=== PATIENT | male | born 1995 | race Two or more races ===

== ENCOUNTER 2018-01-20 14:26 | Emergency (ER) | payer MEDICAID ==
[~2018-01-20] VITALS: Ht 167.6 cm; Wt 77.1 kg
[2018-01-20] MEDS ORDERED: SODIUM CHLORIDE 0.9% 1,000 ML IV ONE (14:45)
[2018-01-20] MEDS ORDERED: TETANUS-DIPTH-ACEL PERTUSSIS 0.5ML SYRG IM ONE (15:45)
[2018-01-20 16:02] LABS: Basophils # (auto) 0 uL; Basophils % (auto) 0.3 % (0.0-2.0); Eosinophils # (auto) 0.2 uL; Eosinophils % (auto) 1.4 % (0.0-7.0); Hematocrit 44.5 % (41.0-53.0); Hemoglobin 15.3 g/dL (13.5-17.5); Lymphocytes # (auto) 1.6 uL; Lymphocytes % (auto) 11.9 % (10.0-50.0); Mean Corpuscular Hemoglobin 32.2 pg (28.0-32.0); Mean Corpuscular Hgb Conc. 34.4 g/dL (32.0-36.0); Mean Corpuscular Volume 93.6 fL (80.0-100.0); Monocytes # (auto) 0.7 uL; Monocytes % (auto) 4.8 % (0.0-12.0); Neutrophils # (auto) 11.2 uL; Neutrophils % (auto) 81.6 % (37.0-80.0); Nucleated Red Blood Cells % 0.1 %; Platelet Count (auto) 347 10^3/uL (140-450); Red Blood Cells 4.75 10^6/uL (4.5-5.90); Red Cell Distribution Width 13.6 % (11.8-14.3); White Blood Cell 13.8 10^3/uL (4.4-10.8)
[2018-01-20] MEDS ORDERED: LIDOCAINE 1% HCL (LOCAL ANESTH.) INJ 20ML MDV ONE (16:07)
[2018-01-20] MEDS ORDERED: LIDOCAINE 1% (LOCAL ANESTH.) PF 5ml SDV IJ ONE (16:15)
[2018-01-20 16:30] LABS: Albumin 3.9 g/dL (3.4-5.0); BUN/Creatinine Ratio 20.3; Bilirubin, Total 0.4 mg/dL (0.2-1.0); Calcium 8.8 mg/dL (8.5-10.1); Potassium 4.2 mmol/L (3.5-5.1); Total Protein 7.4 g/dL (6.4-8.2)
[2018-01-20] MEDS ORDERED: cefTRIAXone 1GM/10ml IVPUSH 10 ML IV ONE (16:30)
[2018-01-20] MEDS ORDERED: NEOMYCIN-BACITRACIN-POLYM UNITDOSE PKG TOP OINT TOP ONE (16:30)
[2018-01-20 18:26] LABS: Urine Bacteria NONE SEEN /hpf (None Seen); Urine Blood Negative /uL (Negative); Urine Mucus FEW (None Seen); Urine Specific Gravity 1.027 (1.001-1.035); Urine WBC 2 /hpf (0 - 3)
[2018-01-20 18:44] LABS: Alcohol, Urine < 3.0 mg/dL (0-5); Amphetamine Screen, Urine POSITIVE (NEGATIVE); Barbiturate Scree,Urine NEGATIVE (NEGATIVE); Benzodiazephine Screen, Urine NEGATIVE (NEGATIVE); Cannabinoid Screen, Urine POSITIVE (NEGATIVE); Cocaine Screen, Urine NEGATIVE (NEGATIVE); Opiate Scree,Urine NEGATIVE (NEGATIVE); Phencyclidine Screen, Urine NEGATIVE (NEGATIVE)
[2018-01-20 18:45] VITALS: BP 125/65
== END 2018-01-20 18:51 | disposition home or self-care (01) ==
LOC: EDBD 14:26 → ER 14:29
DX: S01.21XA Laceration without foreign body of nose, initial encounter (principal); F17.210 Nicotine dependence, cigarettes, uncomplicated; F12.10 Cannabis abuse, uncomplicated; F15.10 Other stimulant abuse, uncomplicated; W17.89XA Other fall from one level to another, initial encounter; Y93.89 Activity, other specified; Y99.8 Other external cause status; Y92.89 Other specified places as the place of occurrence of the external cause
CPT/HCPCS: 12013; 36415; 70450; 70486; 80053; 80307; 81001; 85025; 90471; 90715; 96374; 99285; J2001; J7030

== ENCOUNTER 2018-02-01 20:11 | Emergency (ER) | payer MEDICAID ==
[~2018-02-01] VITALS: Ht 167.6 cm; Wt 81.6 kg
[2018-02-01 20:30] VITALS: BP 150/86
[2018-02-01] MEDS ORDERED: LIDOCAINE 1% HCL (LOCAL ANESTH.) INJ 20ML MDV ONE (22:25)
== END 2018-02-01 21:57 | disposition left against medical advice (07) ==
LOC: ER 20:11
DX: S01.81XD Laceration without foreign body of other part of head, subsequent encounter (principal); Z53.21 Procedure and treatment not carried out due to patient leaving prior to being seen by health care provider; X58.XXXD Exposure to other specified factors, subsequent encounter
CPT/HCPCS: J2001

== ENCOUNTER 2019-05-27 03:25 | Emergency (ER) | payer MEDICAID ==
[~2019-05-27] VITALS: Ht 167.6 cm; Wt 104.3 kg
[2019-05-27 03:37] VITALS: BP 156/91
== END 2019-05-27 05:58 | disposition home or self-care (01) ==
LOC: ER 03:29
DX: S01.112A Laceration without foreign body of left eyelid and periocular area, initial encounter (principal); F17.210 Nicotine dependence, cigarettes, uncomplicated; F12.90 Cannabis use, unspecified, uncomplicated; F15.90 Other stimulant use, unspecified, uncomplicated; W01.198A Fall on same level from slipping, tripping and stumbling with subsequent striking against other object, initial encounter; Y93.89 Activity, other specified; Y99.8 Other external cause status; Y92.89 Other specified places as the place of occurrence of the external cause
CPT/HCPCS: 12011; 70450

== ENCOUNTER 2019-08-05 00:49 | Emergency (ER) | payer MEDICAID ==
[~2019-08-05] VITALS: Ht 167.6 cm; Wt 99.8 kg
[2019-08-05 01:36] VITALS: BP 135/89
== END 2019-08-05 02:08 ==
LOC: ER 00:50
DX: F15.10 Other stimulant abuse, uncomplicated (principal); F12.10 Cannabis abuse, uncomplicated; F17.210 Nicotine dependence, cigarettes, uncomplicated

== ENCOUNTER 2021-09-22 23:13 | Emergency (ER) | payer MEDICAID ==
[~2021-09-22] VITALS: Ht 167.6 cm; Wt 81.6 kg
[2021-09-23 07:26] VITALS: BP 167/97
[2021-09-23] MEDS ORDERED: CEPH500C PO (07:32)
== END 2021-09-23 08:02 | disposition home or self-care (01) ==
LOC: ER 23:13
DX: S61.232A Puncture wound without foreign body of right middle finger without damage to nail, initial encounter (principal); F17.210 Nicotine dependence, cigarettes, uncomplicated; F12.10 Cannabis abuse, uncomplicated; F15.10 Other stimulant abuse, uncomplicated; X58.XXXA Exposure to other specified factors, initial encounter; Y93.51 Activity, roller skating (inline) and skateboarding; Y92.89 Other specified places as the place of occurrence of the external cause; Y99.8 Other external cause status

== ENCOUNTER 2021-09-24 12:13 | Emergency (ER) | payer MEDICAID ==
[~2021-09-24] VITALS: Ht 167.6 cm; Wt 81.6 kg
[~2021-09-24 12:13] MED LIST: CEPH500C PO
[2021-09-24 12:55] VITALS: BP 129/70
== END 2021-09-24 13:33 | disposition home or self-care (01) ==
LOC: ER 12:13
DX: S61.031A Puncture wound without foreign body of right thumb without damage to nail, initial encounter (principal); S61.032A Puncture wound without foreign body of left thumb without damage to nail, initial encounter; F17.210 Nicotine dependence, cigarettes, uncomplicated; Z79.899 Other long term (current) drug therapy; X58.XXXA Exposure to other specified factors, initial encounter; Y93.89 Activity, other specified; Y92.89 Other specified places as the place of occurrence of the external cause; Y99.8 Other external cause status

== ENCOUNTER 2021-09-25 14:06 | Emergency (ER) | payer MEDICAID ==
[~2021-09-25] VITALS: Ht 167.6 cm; Wt 81.6 kg
[2021-09-25 14:24] VITALS: BP 127/88
[2021-09-25] MEDS ORDERED: CEPHALEXIN 250 MG CAP PO ONE (15:00)
== END 2021-09-25 15:20 | disposition home or self-care (01) ==
LOC: ER 14:06
DX: S61.031D Puncture wound without foreign body of right thumb without damage to nail, subsequent encounter (principal); F17.210 Nicotine dependence, cigarettes, uncomplicated; F12.10 Cannabis abuse, uncomplicated; F15.10 Other stimulant abuse, uncomplicated; Z59.00 Homelessness unspecified; X58.XXXD Exposure to other specified factors, subsequent encounter

== ENCOUNTER 2021-09-26 01:42 | Emergency (ER) | payer MEDICAID ==
[~2021-09-26] VITALS: Ht 167.6 cm; Wt 75.7 kg
== END 2021-09-26 03:27 | disposition home or self-care (01) ==
LOC: ER 01:42
DX: F54 Psychological and behavioral factors associated with disorders or diseases classified elsewhere (principal); R21 Rash and other nonspecific skin eruption; F17.210 Nicotine dependence, cigarettes, uncomplicated; Z59.00 Homelessness unspecified; Z79.899 Other long term (current) drug therapy

== ENCOUNTER 2021-09-29 21:11 | Emergency (ER) | payer MEDICAID ==
[~2021-09-29] VITALS: Ht 167.6 cm; Wt 81.6 kg
[2021-09-30 06:55] VITALS: BP 126/88
[2021-09-30] MEDS ORDERED: BACIOIN OP (07:17)
== END 2021-09-30 07:09 | disposition home or self-care (01) ==
LOC: ER 21:11
DX: L98.8 Other specified disorders of the skin and subcutaneous tissue (principal); F17.210 Nicotine dependence, cigarettes, uncomplicated; F12.10 Cannabis abuse, uncomplicated; F15.10 Other stimulant abuse, uncomplicated; Z59.00 Homelessness unspecified
CPT/HCPCS: 74176

== ENCOUNTER 2021-10-02 03:27 | Emergency (ER) | payer MEDICAID ==
[~2021-10-02] VITALS: Ht 167.6 cm; Wt 81.6 kg
[~2021-10-02 03:27] MED LIST changes: +BACIOIN OP
[2021-10-02 03:30] VITALS: BP 127/89
== END 2021-10-02 04:20 | disposition left against medical advice (07) ==
LOC: ER 03:40
DX: F91.9 Conduct disorder, unspecified (principal); Z53.21 Procedure and treatment not carried out due to patient leaving prior to being seen by health care provider

== ENCOUNTER 2021-10-08 02:02 | Emergency (ER) | payer MEDICAID ==
[~2021-10-08] VITALS: Ht 167.6 cm; Wt 81.6 kg
[2021-10-08 02:19] VITALS: BP 127/86
[2021-10-08] MEDS ORDERED: diphenhdrAMINE HCL 50 MG/1 ML VL IM ONE (03:00)
== END 2021-10-08 03:37 | disposition home or self-care (01) ==
LOC: ER 02:17
DX: F45.8 Other somatoform disorders (principal); F17.210 Nicotine dependence, cigarettes, uncomplicated; F12.10 Cannabis abuse, uncomplicated; F15.10 Other stimulant abuse, uncomplicated; Z59.00 Homelessness unspecified
CPT/HCPCS: 96372; 99283; J1200

== ENCOUNTER 2021-12-01 12:42 | Emergency (ER) | payer MEDICAID ==
[~2021-12-01] VITALS: Ht 167.6 cm; Wt 81.6 kg
[2021-12-01 12:42] VITALS: BP 124/70
== END 2021-12-01 16:12 | disposition left against medical advice (07) ==
LOC: ER 12:42
DX: M79.641 Pain in right hand (principal); Z53.21 Procedure and treatment not carried out due to patient leaving prior to being seen by health care provider

== ENCOUNTER 2021-12-04 01:14 | Emergency (ER) | payer MEDICAID ==
[~2021-12-04] VITALS: Ht 167.6 cm; Wt 81.6 kg
[2021-12-04 01:15] VITALS: BP 106/63
== END 2021-12-04 03:18 | disposition left against medical advice (07) ==
LOC: ER 01:16
DX: M79.89 Other specified soft tissue disorders (principal); Z53.21 Procedure and treatment not carried out due to patient leaving prior to being seen by health care provider

== ENCOUNTER 2022-02-18 10:54 | Emergency (ER) | payer MEDICAID ==
[~2022-02-18] VITALS: Ht 167.6 cm; Wt 81.6 kg
[2022-02-18 11:12] VITALS: BP 122/87
== END 2022-02-18 12:58 | disposition home or self-care (01) ==
LOC: ER 10:54
DX: S02.2XXA Fracture of nasal bones, initial encounter for closed fracture (principal); S09.90XA Unspecified injury of head, initial encounter; M79.10 Myalgia, unspecified site; F17.210 Nicotine dependence, cigarettes, uncomplicated; Z59.00 Homelessness unspecified; Z79.899 Other long term (current) drug therapy; Y09 Assault by unspecified means; Y93.89 Activity, other specified; Y92.89 Other specified places as the place of occurrence of the external cause; Y99.8 Other external cause status
CPT/HCPCS: 70450; 70486

== ENCOUNTER 2022-02-22 21:58 | Emergency (ER) | payer MEDICAID ==
[~2022-02-22] VITALS: Ht 167.6 cm; Wt 81.6 kg
[2022-02-22 22:35] VITALS: BP 126/79
== END 2022-02-23 00:44 | disposition left against medical advice (07) ==
LOC: ER 21:58
DX: M79.644 Pain in right finger(s) (principal); Z53.21 Procedure and treatment not carried out due to patient leaving prior to being seen by health care provider; X58.XXXA Exposure to other specified factors, initial encounter; Y93.89 Activity, other specified; Y92.89 Other specified places as the place of occurrence of the external cause; Y99.8 Other external cause status

== ENCOUNTER 2022-02-24 13:32 | Emergency (ER) | payer MEDICAID ==
[~2022-02-24] VITALS: Ht 167.6 cm; Wt 81.6 kg
[2022-02-24 17:47] VITALS: BP 136/91
== END 2022-02-24 17:58 | disposition left against medical advice (07) ==
LOC: ER 13:32
DX: L03.011 Cellulitis of right finger (principal); F17.210 Nicotine dependence, cigarettes, uncomplicated; Z59.00 Homelessness unspecified; Z79.899 Other long term (current) drug therapy